=== PATIENT | female | born 1945 | race Hispanic/Latino ===

== ENCOUNTER 2021-10-28 10:15 | Outpatient (CLI) | payer MEDICARE ==
[2021-10-28 18:13] LABS: SARS-CoV-2 PCR by NAA Not Detected (NotDetected)
== END 2021-10-28 10:16 | disposition home or self-care (01) ==
LOC: CSHLAB 10:15
PROVIDERS: ATTEND Surgery
DX: Z20.822 Contact with and (suspected) exposure to COVID-19 (principal)
CPT/HCPCS: U0003; U0005